=== PATIENT | female | born 1950 | race Caucasian/White ===

== ENCOUNTER → 2016-12-02 | Outpatient (CLI) | payer OTHER, MEDICARE ==
--- NOTE | ~2016-12-02 | 2DMMODE ---
[facility] [email or web address] [address] 2 D/M-MODE ECHOCARDIOGRAM Name: CLAUDIA GERONIMO Room #: REG [facility]#: [id number] Admission: 12/02/16 Attend Phys: Joe Doss MD Discharge: Date of : 52 Date of Service: 12/02/16 1153 Report #: [id number] THIS REPORT FOR: //name// APPROVED REPORT Study performed: 12/02/2016 11:22:09 EXAM: Comprehensive 2D, Doppler, and color-flow Echocardiogram Patient Location: Out-Patient Blood Pressure: 145/82 mmHg HR: 80 bpm Rhythm: NSR Other Information Study Quality: Good Indications Hyperlipidemia, HTN 2D Dimensions RVDd: 36.21 mm LVEF(%): 53.49 (>50%) IVSd: 14.71 (7-11mm) LVOT Diam: 21.36 (18-24mm) LVDd: 46.88 mm PWd: 11.08 (7-11mm) Ascending Ao: 33.64 (22-36mm) LVDs: 33.97 (25-40mm) Aortic Root: 33.86 mm Summers's LVEF: 53.49 % Volumes Left Atrial Volume (Systole) Single Plane 4CH: 52.87 mL Single Plane 2CH: 61.08 mL LA ESV Index: 30.00 mL/m2 Aortic Valve AoV Peak Ronal.: 1.55 m/s AO Peak Gr.: 9.63 mmHg LVOT Max P.67 mmHg LVOT Max V: 1.19 m/s BRUCE Vmax: 2.75 cm2 Mitral Valve E/A Ratio: 0.7 MV Decel. Time: 305.06 ms [facility] [place] [address] [place] [address] 2 D/M-MODE ECHOCARDIOGRAM Name: CLAUDIA GERONIMO Room #: REG [facility]#: [id number] Admission: 12/02/16 Attend Phys: Joe Doss MD Discharge: Date of : 52 Date of Service: 12/02/16 1153 Report #: [id number] MV E Max Ronal.: 0.73 m/s MV A Ronal.: 1.07 m/s MV PHT: 88.47 ms IVRT: 73.82 ms Pulmonary Valve PV Peak Ronal.: 0.77 m/s PV Peak Gr.: 2.40 mmHg Pulmonary Vein P Vein S: 61.2 m/s P Vein A: 28.56 m/s P Vein D: 31.8 m/s P Vein A Dur.: 110.7 msec Tricuspid Valve TR Peak Ronal.: 2.46 m/s RAP Estimate: 5.00 mmHg TR Peak Gr.: 24.16 mmHg RVSP: 29.00 mmHg Left Ventricle The left ventricle is normal size. There is normal LV segmental wall motion. Mild basal septal hypertrophy is present. Left ventricular systolic function is normal. LVEF is 60%. Grade I - abnormal relaxation pattern. Right Ventricle The right ventricle is normal size. The right ventricular systolic function is normal. Atria The left atrium size is normal. The right atrium size is normal. Aortic Valve The aortic valve is normal in structure. No aortic regurgitation is present. There is no aortic valvular stenosis. Mitral Valve The mitral valve is normal in structure. Trace to mild mitral regurgitation. No evidence of mitral valve stenosis. Tricuspid Valve The tricuspid valve is normal in structure. There is mild tricuspid regurgitation. The right atrial pressure is estimated at 5 mmHg.Estimated PAP is 29mmHg. Pulmonic Valve The pulmonary valve is normal in structure. There is no pulmonic valvular regurgitation. [facility] [address] [place] [address] 2 D/M-MODE ECHOCARDIOGRAM Name: CLAUDIA GERONIMO Room #: REG CL [facility]#: [id number] Admission: 12/02/16 Attend Phys: Joe Doss MD Discharge: Date of : 52 Date of Service: 12/02/16 1153 Report #: [id number] Great Vessels The aortic root is normal in size. The ascending aorta is normal in size. IVC is normal in size and collapses >50% with inspiration. Pericardium There is no pericardial effusion. <Conclusion> The left ventricle is normal size. Left ventricular systolic function is normal. Grade I - abnormal relaxation pattern. The right ventricle is normal size. The left atrium size is normal. The aortic valve is normal in structure. Trace to mild mitral regurgitation. There is mild tricuspid regurgitation. The right atrial pressure is estimated at 5 mmHg.Estimated PAP is 29mmHg. <ELECTRONICALLY SIGNED> By: Joe Doss MD 12/02/16 1153 1153 1153 Joe Doss MD /INF
== END ==
LOC: CV 07:25
DX: I10 Essential (primary) hypertension (principal); E78.5 Hyperlipidemia, unspecified

== ENCOUNTER → 2018-01-09 | Outpatient (CLI) | payer OTHER, MEDICARE ==
--- NOTE | ~2018-01-09 | EXE ---
[email or web address] [place] [address] STRESS ECHOCARDIOGRAM Name: CLAUDIA GERONIMO Room #: REG [facility]#: [id number] Admission: 01/09/18 Attend Phys: Joe Doss MD Discharge: Date of : 52 Date of Service: 01/09/18 1525 Report #: [id number] THIS REPORT FOR: //name// APPROVED REPORT Study performed: 01/09/2018 14:17:34 Exam: Stress Echocardiogram Indication: CAD Patient Location: Echo lab Stress Nurse: Rere Pugh RN Status: routine Ht: 5 ft 6 in HR: 83 bpm BP: 160/84 mmHg Medical History Allergies: No known drug allergies Procedure The patient underwent an Exercise Stress Test using the Johny Protocol. Blood pressure, heart rate, and EKG were monitored. An Echocardiogram was performed by quality assurance technician in four stages in quad fashion. At peak stress, four selected images were obtained and placed side by side with resting images for comparison. Stress Test Details Stress Test: Exercise stress testing was performed using a Johny protocol. HR Resting HR: 83 bpm Max Heart Rate (APMHR): 154 bpm Max HR Achieved: 158 bpm Target HR (85% APMHR): 130 bpm % of APMHR: 102 Recovery HR: 99 bpm HR response to stress: Normal HR response to stress BP Resting BP: 160/84 mmHg Max BP: 180/90 mmHg Recovery BP: 140/74 mmHg ECG Resting ECG: Sinus Rhythm, NSSTT changes Stress ECG: Sinus Rhythm, nonspecific ST-T abnormalities ST Change: Non-ischemic [facility] [address] [place] [address] STRESS ECHOCARDIOGRAM Name: CLAUDIA GERONIMO Room #: REG CL [facility].#: [id number] Admission: 01/09/18 Attend Phys: Joe Doss MD Discharge: Date of : 52 Date of Service: 01/09/18 1525 Report #: [id number] Maximum ST Deviation: 0.5 mm Clinical Reason for Termination: Completed protocol, Maximal effort Stress Symptoms: none Exercise duration: 9 min 51 sec Highest Stage Achieved: Stage 4: 4.2 mph at 16% grade. Exercise capacity: 12.9 METs Pre-Stress Echo The resting Echocardiogram showed normal left ventricular contractility with an estimated Ejection Fraction of about 60%. Normal wall motion in all segments on baseline images. Post-Stress Echo The stress Echocardiogram showed normal left ventricular contractility with an estimated Ejection Fraction of about >70%. Normal augmentation of wall motion in all segments on post stress images. Clinical No clinical or ECG evidence for ischemia. Conclusion Clinical Response: Non-ischemic Exercise Capacity: Above average Stress ECG Response: Non-ischemic Stress Echo Images: Non-ischemic The left ventricle is normal in size and wall thickness in both the rest and stress images. Other Information Study Quality: Good <Conclusion> The left ventricle is normal in size and wall thickness in both the rest and stress images. <ELECTRONICALLY SIGNED> By: Joe Doss MD 01/09/18 1525 1525 1525 Joe Doss MD /INF
== END ==
LOC: CV 10:29
DX: I25.10 Atherosclerotic heart disease of native coronary artery without angina pectoris (principal)